=== PATIENT | male | born 1950 | race Caucasian/White ===

== ENCOUNTER 2017-11-26 18:59 | Emergency (ER) | payer MEDICARE, OTHER ==
[~2017-11-26] VITALS: Ht 177.8 cm; Wt 100.3 kg
[~2017-11-26 18:59] MED LIST: ALD25T PO; ATOR40TA PO; CARV3.12 PO; LISI2.5T49 PO; PANT-47 PO; [UNRECOGNIZED DRUG - CODE] PO
[2017-11-26 20:24] LABS: BASOPHILS % (AUTO) 0.3 % (0-1); EOSINOPHILS # (AUTO) 0.2 X10'3 (0-0.9); EOSINOPHILS % (AUTO) 2.9 % (0-6); HEMATOCRIT 37.7 % (42.0-52.0); HEMOGLOBIN 13.6 g/dl (14.0-17.9); LYMPHOCYTES # (AUTO) 2.1 X10'3 (1.1-4.8); LYMPHOCYTES % (AUTO) 29.9 % (21-51); MEAN CORPUSCULAR HEMOGLOBIN 33.9 PG (27.0-31.0); MEAN CORPUSCULAR HGB CONC 35.9 % (33.0-36.5); MEAN CORPUSCULAR VOLUME 94.5 FL (78-98); MEAN PLATELET VOLUME 8.7 FL (7.4-10.4); MONOCYTES # (AUTO) 0.6 X10'3 (0-0.9); MONOCYTES % (AUTO) 8.5 % (2-12); NEUTROPHILS # (AUTO) 4.2 X10'3 (1.8-7.7); NEUTROPHILS % (AUTO) 58.4 % (42-75); PLATELET COUNT 176 X10'3 (140-440); RED BLOOD COUNT 3.99 X10'6 (4.70-6.10); RED CELL DISTRIBUTION WIDTH 13.8 % (11.5-14.5); WHITE BLOOD COUNT 7.1 X10'3 (4.5-11.0)
[2017-11-26 20:31] LABS: PROTHROMBIN TIME 10.7 SECONDS (9.0-12.0)
[2017-11-26 20:32] LABS: TOTAL CARBON DIOXIDE 29.3 MMOL/L (24-32)
[2017-11-26 20:56] LABS: ALANINE AMINOTRANSFERASE 44 U/L (12-78); ALBUMIN 3.8 G/DL (3.4-5.0); ALKALINE PHOSPHATASE 78 IU/L (46-116); ANION GAP 8 (8-16); ASPARTATE AMINO TRANSFERASE 35 U/L (10-37); BILIRUBIN,TOTAL 0.8 MG/DL (0.1-1.0); BLOOD UREA NITROGEN 21 MG/DL (7-18); BUN/CREATININE RATIO 17.8 (5.4-32.0); CALCIUM 9.3 MG/DL (8.5-10.1); CHLORIDE 103 MMOL/L (99-107); CREATININE 1.18 MG/DL (0.60-1.10); GLUCOSE 125 MG/DL (70-104); POTASSIUM 3.9 MMOL/L (3.5-5.1); SODIUM 140 MMOL/L (135-145); TOTAL PROTEIN 7.8 G/DL (6.4-8.2); eGFR 61 ML/MIN
[2017-11-26 21:23] VITALS: BP 135/75
[2017-11-26 21:57] LABS: CLARITY,URINE CLEAR (Clear); COLOR,URINE YELLOW (Yellow); GLUCOSE, URINE NEGATIVE (Neg); KETONES,URINE NEGATIVE (Neg); LEUKOCYTE ESTERASE ,URINE NEGATIVE (Neg); NITRITES, URINE NEGATIVE (Neg); OCCULT BLOOD,URINE NEGATIVE (Neg); PROTEIN,URINE NEGATIVE (Neg); UROBILINOGEN,URINE 0.2 E.U/dL (0.2-1.0)
[2017-11-26 21:58] LABS: UA COLLECTION TYPE CLN CATCH MIDSTREAM
== END 2017-11-26 22:00 | disposition home or self-care (01) ==
LOC: ER 19:01
DX: I48.91 Unspecified atrial fibrillation (principal); I50.9 Heart failure, unspecified; Z95.0 Presence of cardiac pacemaker; Z87.11 Personal history of peptic ulcer disease; Z79.899 Other long term (current) drug therapy; Z79.82 Long term (current) use of aspirin
CPT/HCPCS: 36415; 80053; 81003; 85025; 85610; 99284

== ENCOUNTER 2021-03-15 11:00 | Day surgery (SDC) | payer OTHER ==
[~2021-03-15] VITALS: Ht 177.8 cm; Wt 123.4 kg
[2021-03-15] VITALS (7 sets, daily range): BP systolic 98–129; BP diastolic 39–59
[2021-03-15] MEDS ORDERED: diphenhydrAMINE 25mg capsule PO PRN (12:00)
[2021-03-15] MEDS ORDERED: normal saline 1,000 ML IV SCH (12:00)
[2021-03-15] MEDS ORDERED: LORazepam 0.5 MG tablet PO PRN (12:00)
[2021-03-15] MEDS ORDERED: iron PO (12:23)
[2021-03-15] MEDS ORDERED: vitamin d3 PO (12:23)
[2021-03-15] MEDS ORDERED: CYAN50009 PO (12:23)
[2021-03-15] MEDS ORDERED: OMEG-79 PO (12:23)
[2021-03-15] MEDS ORDERED: LOSA25TA96 PO (12:23)
[2021-03-15] MEDS ORDERED: gabapentin PO (12:23)
[2021-03-15] MEDS ORDERED: POTA10TA19 PO (12:23)
[2021-03-15] MEDS ORDERED: ISOS30TA9 PO (12:23)
[2021-03-15] MEDS ORDERED: CARV25TA PO (12:23)
[2021-03-15] MEDS ORDERED: ASPI-1265 PO (12:23)
[2021-03-15] MEDS ORDERED: MULT-1085 PO (12:23)
[2021-03-15] MEDS ORDERED: FURO40TA4 PO (12:23)
[2021-03-15] MEDS ORDERED: iohexol 350MG/ML 100ml bottle IV ONE ×2 (12:35→14:08)
[2021-03-15] MEDS ORDERED: nitroGLYCERIN-Tridil 50MG/D5W 250 ML IV ONE (12:35)
[2021-03-15] MEDS ORDERED: LIDOcaine 1% (10mg/ml)w/preservative injection 20ml MDV ONE (12:35)
[2021-03-15] MEDS ORDERED: fentaNYL/PF 50MCG/1 ML 2ML syringe ONE (12:35)
[2021-03-15] MEDS ORDERED: heparin 1,000unit/ml 10ml vial 10 ML ONE (12:35)
[2021-03-15] MEDS ORDERED: midazolam 1 mg/ML 2ml injection ONE ×2 (12:35→13:35)
[2021-03-15] MEDS ORDERED: verapamil 2.5 mg/ml inj IV ONE (12:35)
[2021-03-15 12:38] LABS: BASOPHILS % (AUTO) 0.6 % (0-1); EOSINOPHILS # (AUTO) 0.2 X10'3 (0-0.9); EOSINOPHILS % (AUTO) 2.9 % (0-6); HEMATOCRIT 38.4 % (42.0-52.0); HEMOGLOBIN 13.2 g/dl (14.0-17.9); LYMPHOCYTES # (AUTO) 1.8 X10'3 (1.1-4.8); LYMPHOCYTES % (AUTO) 30.1 % (21-51); MEAN CORPUSCULAR HGB CONC 34.4 g/dL (33.0-36.5); MEAN CORPUSCULAR VOLUME 95.9 FL (78-98); MEAN PLATELET VOLUME 7.8 FL (7.4-10.4); MONOCYTES # (AUTO) 0.7 X10'3 (0-0.9); MONOCYTES % (AUTO) 11.2 % (2-12); NEUTROPHILS # (AUTO) 3.2 X10'3 (1.8-7.7); NEUTROPHILS % (AUTO) 55.2 % (42-75); PLATELET COUNT 173 X10'3 (140-440); RED CELL DISTRIBUTION WIDTH 13.5 % (11.5-14.5); WHITE BLOOD COUNT 5.8 X10'3 (4.5-11.0)
[2021-03-15 13:01] LABS: ALBUMIN 3.7 G/DL (3.4-5.0); ANION GAP 11 (8-16); BLOOD UREA NITROGEN 20 MG/DL (7-18); BUN/CREATININE RATIO 17.1 (5.4-32.0); CALCIUM 8.3 MG/DL (8.5-10.1); CHLORIDE 107 MMOL/L (99-107); CREATININE 1.17 MG/DL (0.60-1.10); GLUCOSE 139 MG/DL (70-104); POTASSIUM 3.9 MMOL/L (3.5-5.1); SODIUM 143 MMOL/L (135-145); TOTAL CARBON DIOXIDE 25.4 MMOL/L (24-32); eGFR 61 ML/MIN
[2021-03-15 13:04] LABS: PARTIAL THROMBOPLASTIN TIME 37 SECONDS (22-32)
[2021-03-15] MEDS ORDERED: iohexol 350 MG/ML 50ML vial IV ONE ×2 (14:03→14:15)
[2021-03-15] MEDS ORDERED: ondansetron/PF 4mg/2ml inj IV PRN (14:55)
[2021-03-15] MEDS ORDERED: HYDROcodone/acetaminophen 10/325mg tab PO PRN (15:00)
[2021-03-15] MEDS ORDERED: proCHLORperazine 10 MG/2 ml inj IV PRN (15:00)
[2021-03-15] MEDS ORDERED: OXAZEpam 15mg capsule PO PRN (15:00)
[2021-03-15] MEDS ORDERED: HYDROcodone/acetaminophen 5mg/325mg tablet PO PRN (15:00)
== END 2021-03-15 17:20 | disposition home or self-care (01) ==
LOC: SSTAY O 11:00
PROVIDERS: ATTEND Internal Medicine Interventional Cardiology
DX: R94.39 Abnormal result of other cardiovascular function study (principal); R07.89 Other chest pain; I25.119 Atherosclerotic heart disease of native coronary artery with unspecified angina pectoris; J44.9 Chronic obstructive pulmonary disease, unspecified; E66.9 Obesity, unspecified; Z68.39 Body mass index [BMI] 39.0-39.9, adult; I42.9 Cardiomyopathy, unspecified; I35.0 Nonrheumatic aortic (valve) stenosis; I11.0 Hypertensive heart disease with heart failure; I50.9 Heart failure, unspecified; Z79.01 Long term (current) use of anticoagulants; Z79.899 Other long term (current) drug therapy
CPT/HCPCS: 36415; 80048; 85025; 85730; 93005; 93458; 93567; 99152; 99153; C1769; C1894; J1644; J2001; J2250; J3010; J7030; Q0163; Q9967; A4620; A5120; J3490

== ENCOUNTER 2021-03-31 15:44 | Emergency (ER) | payer OTHER ==
[~2021-03-31] VITALS: Ht 177.8 cm; Wt 120.4 kg
[~2021-03-31 15:44] MED LIST changes: -ALD25T PO; +ASPI-1265 PO; +CARV25TA PO; -CARV3.12 PO; +CYAN50009 PO; +FURO40TA4 PO; +ISOS30TA9 PO; -LISI2.5T49 PO; +LOSA25TA96 PO; +MULT-1085 PO; +OMEG-79 PO; +POTA10TA19 PO; +gabapentin PO; +iron PO; +vitamin d3 PO
[2021-03-31 18:29] LABS: BASOPHILS % (AUTO) 0.4 % (0-1); EOSINOPHILS % (AUTO) 0.2 % (0-6); HEMATOCRIT 38.2 % (42.0-52.0); HEMOGLOBIN 12.9 g/dl (14.0-17.9); LYMPHOCYTES # (AUTO) 1.4 X10'3 (1.1-4.8); LYMPHOCYTES % (AUTO) 33.9 % (21-51); MEAN CORPUSCULAR HEMOGLOBIN 32.5 PG (27.0-31.0); MEAN CORPUSCULAR HGB CONC 33.8 g/dL (33.0-36.5); MEAN PLATELET VOLUME 8.4 FL (7.4-10.4); MONOCYTES # (AUTO) 0.5 X10'3 (0-0.9); MONOCYTES % (AUTO) 11.5 % (2-12); NEUTROPHILS # (AUTO) 2.2 X10'3 (1.8-7.7); PLATELET COUNT 118 X10'3 (140-440); RED BLOOD COUNT 3.98 X10'6 (4.70-6.10); RED CELL DISTRIBUTION WIDTH 14.1 % (11.5-14.5); WHITE BLOOD COUNT 4.2 X10'3 (4.5-11.0)
[2021-03-31 18:41] LABS: ALANINE AMINOTRANSFERASE 37 U/L (12-78); ALBUMIN 3.3 G/DL (3.4-5.0); ALBUMIN/GLOBULIN RATIO 0.9 (1.1-1.5); ALKALINE PHOSPHATASE 59 IU/L (46-116); ANION GAP 10 (8-16); ASPARTATE AMINO TRANSFERASE 52 U/L (10-37); BILIRUBIN,TOTAL 0.8 MG/DL (0.1-1.0); BLOOD UREA NITROGEN 21 MG/DL (7-18); BUN/CREATININE RATIO 18.6 (5.4-32.0); CALCIUM 7.5 MG/DL (8.5-10.1); CHLORIDE 103 MMOL/L (99-107); CREATININE 1.13 MG/DL (0.60-1.10); GLUCOSE 109 MG/DL (70-104); POTASSIUM 4.2 MMOL/L (3.5-5.1); SODIUM 136 MMOL/L (135-145); TOTAL PROTEIN 7.1 G/DL (6.4-8.2); eGFR 64 ML/MIN
--- NOTE | 2021-03-31 19:00 | NUR ---
Placed pt in airborne isolation until covid test results are in.
--- NOTE | 2021-03-31 19:41 | NUR ---
Pt is Positive for covid-19. He is in enhanced airborne isolation.
[2021-03-31] MEDS ORDERED: acetaminophen 325mg tablet PO ONE (19:55)
[2021-03-31] MEDS ORDERED: CASIRIVIMAB/IMDEVIMAB inject. 10 ML in normal saline 100ml IV soln 100 ML IV ONE (19:55)
[2021-03-31] MEDS ORDERED: GUAI400T92 PO (20:11)
[2021-03-31 23:03] VITALS: BP 111/54
[2021-04-01 10:08] LABS: OCCULT BLOOD STOOL NEGATIVE (Neg)
== END 2021-03-31 22:55 | disposition home or self-care (01) ==
LOC: ER 15:44
DX: U07.1 COVID-19 (principal); D64.9 Anemia, unspecified; I48.91 Unspecified atrial fibrillation; I50.9 Heart failure, unspecified; Z87.11 Personal history of peptic ulcer disease; Z95.0 Presence of cardiac pacemaker; Z79.82 Long term (current) use of aspirin; Z79.899 Other long term (current) drug therapy
CPT/HCPCS: 36415; 71045; 80053; 82272; 85025; 87635; 99284; C9803; M0243; Q0244